=== PATIENT | male | born 2000 | race Caucasian/White ===

== ENCOUNTER → 2018-02-23 | Outpatient (CLI) | payer OTHER ==
[~2018-02-23] MED LIST: GADOBUTROL 2 MMOL/2 ML VIAL ONE; LIDOCAINE-MPF 2% ,5ML ONE; OMNIPAQUE 300 MG/ML, 10ML VIAL ONE; ROPIvacaine/PF 0.2%, 20 ML ONE
== END ==
LOC: RAD 12:41
PROVIDERS: ATTEND Family Medicine
DX: M25.512 Pain in left shoulder (principal)
CPT/HCPCS: 73040; 73222; A9585; J2795; J3490; Q9967

== ENCOUNTER 2020-05-05 14:27 | Outpatient (CLI) | payer OTHER ==
[2020-05-05] MEDS ORDERED: BCAA PO (15:09)
[2020-05-05] MEDS ORDERED: CREATINE PO (15:09)
[2020-05-05] MEDS ORDERED: CLINDAMYCIN TP (15:09)
[2020-05-05] MEDS ORDERED: VITAMIN C PO (15:09)
== END 2020-05-05 23:59 | disposition home or self-care (01) ==
LOC: STAR 14:27
PROVIDERS: ATTEND Orthopaedic Surgery
DX: Z02.9 Encounter for administrative examinations, unspecified (principal)

== ENCOUNTER → 2020-05-08 | Outpatient (CLI) | payer OTHER ==
[~2020-05-08] MED LIST changes: +BCAA PO; +CLINDAMYCIN TP; +CREATINE PO; -GADOBUTROL 2 MMOL/2 ML VIAL ONE; -LIDOCAINE-MPF 2% ,5ML ONE; -OMNIPAQUE 300 MG/ML, 10ML VIAL ONE; -ROPIvacaine/PF 0.2%, 20 ML ONE; +VITAMIN C PO
== END | disposition home or self-care (01) ==
LOC: STAR 10:17
PROVIDERS: ATTEND Anesthesiology
DX: Z20.828 Contact with and (suspected) exposure to other viral communicable diseases (principal)
CPT/HCPCS: 36415; 87635

== ENCOUNTER 2020-05-13 07:38 | Day surgery (SDC) | payer OTHER ==
[~2020-05-13] VITALS: Ht 193 cm; Wt 85.6 kg
[~2020-05-13 07:38] MED LIST changes: +BUPIVACAINE/PF 0.25% ONE
[2020-05-13] MEDS ORDERED: CHLORHEXIDINE 15 ML UDC MM ONE (08:00)
[2020-05-13] MEDS ORDERED: LIDOCAINE-MPF 1%, 2ML ONE (08:08)
[2020-05-13] MEDS ORDERED: CHLORHEXIDINE 15 ML UDC ONE (08:08)
[2020-05-13] MEDS ORDERED: FENTANYL PF 100 MCG/2ML ONE ×2 (08:18→10:30)
[2020-05-13] MEDS ORDERED: MIDAZOLAM 1 MG/ML, 2ML ONE (08:18)
[2020-05-13] MEDS ORDERED: LACTATED RINGERS 1,000 ML IV SCH (08:41)
[2020-05-13] MEDS ORDERED: LIDOCAINE PF 2%, 5ML ONE (08:56)
[2020-05-13] MEDS ORDERED: LIDOCAINE-MPF 1%, 2ML INFIL ONE (09:00)
[2020-05-13] MEDS ORDERED: PROPOFOL 50 ML ONE (09:06)
[2020-05-13] MEDS: FENTANYL PF 100 MCG/2ML IV PRN ×2 (10:33→10:44)
[2020-05-13] MEDS ORDERED: DEXAMETHASONE 4 MG/ML, 1ML ONE (10:47)
[2020-05-13] MEDS ORDERED: PROPOFOL 10 MG/ML, 20ML ONE (10:47)
[2020-05-13] MEDS ORDERED: CEFAZOLIN 1,000 MG ONE (10:47)
[2020-05-13] MEDS ORDERED: NEOSTIGMINE 1 MG/ML, 10ML ONE (10:47)
[2020-05-13] MEDS ORDERED: SUCCINYLCHOLINE 20 MG/ML, 10ML ONE (10:47)
[2020-05-13] MEDS ORDERED: ROCURONIUM 10MG/ML,5ML ONE (10:47)
[2020-05-13] MEDS ORDERED: ONDANSETRON 2MG/ML, 2ML ONE (10:47)
[2020-05-13] MEDS ORDERED: GLYCOPYRROLATE 0.2MG/1ML, 5ML ONE (10:47)
[2020-05-13] MEDS ORDERED: ACETAMINOPHEN 325 MG TABLET PO PRN (11:00)
[2020-05-13] MEDS ORDERED: OXYcodone 5 MG/5 ML ORAL.SOL UDC PO PRN (11:00)
== END 2020-05-13 12:10 | disposition home or self-care (01) ==
LOC: OUT 07:38
PROVIDERS: ATTEND Orthopaedic Surgery
DX: M25.312 Other instability, left shoulder (principal); M94.212 Chondromalacia, left shoulder; M24.112 Other articular cartilage disorders, left shoulder; G89.18 Other acute postprocedural pain; F17.210 Nicotine dependence, cigarettes, uncomplicated; Z72.89 Other problems related to lifestyle; Z79.899 Other long term (current) drug therapy
CPT/HCPCS: 29806; 29822; 64415; J0330; J0690; J1100; J2250; J2405; J2704; J2710; J3010; J3490; C1713